=== PATIENT | female | born 1960 | race Caucasian/White ===

== ENCOUNTER 2024-07-09 10:30 | Outpatient (CLI) | payer MEDICARE ==
--- NOTE | 2024-07-09 14:56 | XRAY Report ---
Foot 1-2V RT HISTORY: 64 years of age, PAIN IN RIGHT FOOT TECHNIQUE: Foot 1-2V RT COMPARISON: None. FINDINGS/IMPRESSION: Screw fixation of the medial malleolus and plate and screw fixation of the distal fibula, incompletel y evaluated. Mild degenerative changes of first interphalangeal joint. No acute fracture or dislocati on. Reviewed by: Aruna Wiggins MD on 07/09/2024 2:54 PM PDT Approved by: Aruna Wiggins MD on 07/09/2024 2:54 PM PDT Station ID: [id number]
--- NOTE | 2024-07-09 16:39 | XRAY Report ---
PROCEDURE: Ankle 3+V RT INDICATIONS: PAIN IN RIGHT FOOT TECHNIQUE: 3 views of the ankle were acquired. COMPARISON: None. FINDINGS: Bones: No fractures or dislocations. An apparent lucency in the posterior aspect of the talus is fav ored to reflect a vascular channel. Ankle mortise is normally aligned on nonweightbearing view. No s uspicious bony lesions. Plate and fixation screw of the tibia and fibula is intact with no perihardwa re lucency. Soft tissues: No tibiotalar joint effusion. Achilles tendon appears normal. IMPRESSION: 1.ORIF hardware of the distal tibia and fibula is intact without complication. 2.No definite acute osseous abnormality. An apparent lucency in the posterior aspect of the talus is favored to reflect a vascular channel. Correlate for point tenderness. If clinical symptoms persist, consider repeat radiograph in 7-10 days versus cross-sectional imaging. Reviewed by: DARSHANA Reveles on 07/09/2024 4:38 PM PDT Approved by: Hina Chen MD on 07/09/2024 4:38 PM PDT Station ID: [id number]
== END 2024-07-09 10:45 | disposition home or self-care (01) ==
LOC: DI.N 10:30
PROVIDERS: ATTEND Physician Assistant Medical
DX: M19.071 Primary osteoarthritis, right ankle and foot (principal)